=== PATIENT | male | born 1975 ===

== ENCOUNTER 2024-04-02 07:40 | Day surgery (SDC) | payer OTHER, SELFPAY ==
[2024-04-01 14:29] VITALS: BMI 30.6
--- NOTE | 2024-04-01 14:41 | ESHP_ITS ---
RE: TARA HAM : 1975 DATE OF ADMISSION: 04/02/2024 HISTORY OF PRESENT ILLNESS: The patient is an inmate from [facility]. He is a 48-year-old gentleman with right scrotal swelling for about three years. The patient has symptoms. The swelling bothers him. The patient had ultrasound of his scrotum done before. PAST SURGICAL HISTORY: None. PAST MEDICAL HISTORY: There is no history of diabetes mellitus. No history of hypertension. SOCIAL HISTORY: He has one child. MEDICATIONS: None. ALLERGIES: NONE KNOWN. PHYSICAL EXAMINATION: HEENT: Normal. NECK: Supple. LUNGS: Clear. CARDIOVASCULAR: Heart sounds are normal. ABDOMEN: Soft without any organomegaly. No guarding. No rigidity. EXTREMITIES: Normal. GENITOURINARY: Phallus is normal. Testes are down in the scrotum. There is a right-sided scrotal swelling about 3 inches in size, which is above the right testis, which clinically represents right spermatocele or epididymal cyst. IMPRESSION: Right scrotal spermatocele. PLAN: Right spermatocelectomy. Planned procedure, risks and complications have been discussed with the patient. The patient has understood them and agreed to proceed. Thank you very much for your kind referral and for allowing me to see this patient. cc: [facility] DT: 11:14:18 TT: 14:36:00 Ref: [id number] - TID: [id number]
[2024-04-02] VITALS (10 sets, daily range): BP systolic 93–147; BP diastolic 58–90; PULSE 60–78; RESP 12–18; TEMP 36.1–36.4; O2SAT 95–100; BMI 30.3
[2024-04-02] MEDS: RINGERS LACTATED 1000 ML 1,000 ML 20 ML IV (08:30)
--- NOTE | 2024-04-02 10:53 | SUR.PHASEI ---
1039 Patient arrived to recovery resting comfortably in [facility], on oxygen 6L via oxy mask with an oral airway in place, breathing unlabored, vital signs stable, dressing intact to groin area; dissolvable sutures, ointment, telfa, fluffs, scrotal support, no bleeding noted, patient accompanied by officer, patient has metal ankle restraints and metal waist restraint in place, lung sounds clear upon auscultation, bilateral radial pulses present when palpated, report received from Annie DIAMOND and Analy GARCIA
--- NOTE | 2024-04-02 11:35 | SUR.PHASEII ---
patient ate two puddings, tolerating well, denies nausea
--- NOTE | 2024-04-02 12:01 | SUR.PHASEII ---
1201 patient meets discharge criteria from recovery, awake and alert, breathing unlabored, vital signs stable, denies pain, patient voided in the restroom prior to discharge, ate two puddings and drinking 7up; denies nausea, assisted with dressing into his clothing by officer, metal bilateral ankle and wrist restraints place on patient, accompanied by two officer, discharge instructions given to patient and officer, officer signed discharge instructions. Patient given all his belongings prior to discharge, transported via wheelchair and left in private vehicle.
--- NOTE | 2024-04-02 17:54 | ESOP_ITS ---
RE: TARA HAM : 1975 DATE OF OPERATION: 04/02/2024 The patient is an inmate from [facility] and his [facility] number is [id number]. PREOPERATIVE DIAGNOSIS: Right scrotal swelling about 3 inches in size. POSTOPERATIVE DIAGNOSIS: Right scrotal hydrocele with prominent appendix of right testis. PROCEDURE PERFORMED: Right hydrocelectomy with excision and fulguration of the appendix of right testis. ANESTHESIA: General. INDICATION: The patient is a 48-year-old gentleman, who was referred to me with history of right scrotal swelling, is about 3 inches in size. Initially, it appeared to be right spermatocele with large right scrotal swelling. The patient was now scheduled to have removal of the right scrotal swelling. Planned procedure, risks and complications have been discussed with the patient. The patient has understood them and agreed to proceed. DESCRIPTION OF PROCEDURE: After the patient was brought to the operating table under adequate general anesthesia in supine position, parts were prepped and draped in the usual fashion. Right scrotal incision was then made approximately 3 cm long and the dissection was carried out. It appeared that patient has right-sided scrotal hydrocele. The hydrocele sac was dissected from surrounding structures and the hydrocele sac was pushed through the scrotal incision. The hydrocele sac was opened and was found to contain about 300-400 mL of clear yellow hydrocele fluid. The testis itself appeared normal without any evidence of any testicular tumor. The appendix of the right testis was prominent and was excised and fulgurated. Partial excision and eversion of the sac were carried out and the sac was turned and sutured behind the spermatic cord structures. Complete hemostasis was obtained. The testis was put back in the right scrotal sac and the wound was closed with 3-0 chromic catgut sutures in layers. Sponge count and needle count at the end of the procedure were found to be correct. Estimated blood loss was approximately 5 mL.. Local anesthetic was injected into the wound at the end of the procedure for the postoperative pain. Thank you very much for your kind referral. cc: [facility] DT: 10:51:55 TT: 17:54:00 Ref: [id number] - TID: [id number]
== END 2024-04-02 12:01 | disposition home or self-care (01) ==
PROVIDERS: Referring Provider Surgery; Visit Provider Surgery
PROC: (CPT 54840; principal; 2024-04-02 08:30)
DX: N43.3 Hydrocele, unspecified (principal)
CPT/HCPCS: 55040; A4649; J0690; J1100; J2250; J2405; J2704; J3010; J3490; J7120; A9270